=== PATIENT | male | born 1980 | race Two or more races ===

== ENCOUNTER 2022-12-06 13:41 | Emergency (ER) | payer OTHER ==
[~2022-12-06] VITALS: Ht 182.9 cm; Wt 109.9 kg
[2022-12-06 14:22] LABS: Basophils # (auto) 0 10 ^3/uL (0-0.2); Eosinophils # (auto) 0.1 10 ^3/uL (0-0.8); Lymphocytes # (auto) 2.3 10 ^3/uL (0.4-5.4); Mean Corpuscular Hgb Conc. 33.6 g/dL (32.0-36.0); Monocytes # (auto) 0.5 10 ^3/uL (0-1.3)
[2022-12-06 14:24] LABS: Basophils % (auto) 0.7 % (0.0-2.0); Hematocrit 22.3 % (41.0-53.0); Hemoglobin 7.5 g/dL (13.5-17.5); Lymphocytes % (auto) 34.2 % (10.0-50.0); Mean Corpuscular Hemoglobin 32.6 pg (28.0-32.0); Mean Corpuscular Volume 97.2 fL (80.0-100.0); Monocytes % (auto) 7.7 % (0.0-12.0); Neutrophils # (auto) 3.7 10 ^3/uL (1.6-8.6); Neutrophils % (auto) 55.4 % (37.0-80.0); Nucleated Red Blood Cells % 0.6 %; Red Blood Cells 2.29 10^6/uL (4.5-5.90); Red Cell Distribution Width 13.9 % (11.8-14.3); White Blood Cell 6.7 10^3/uL (4.4-10.8)
[2022-12-06 14:59] LABS: Albumin 3.2 g/dL (3.4-5.0)
[2022-12-06 15:03] LABS: BUN/Creatinine Ratio 12.3 (10.0-20.0); Bilirubin, Total 0.3 mg/dL (0.2-1.0); Total Protein 5.6 g/dL (6.4-8.2)
[2022-12-06] MEDS ORDERED: PANTOPRAZOLE 40 MG/10 ML VIAL INJ IV ONE ×2 (16:30→19:45)
[2022-12-06 17:09] LABS: % Iron Saturation 19.3 % (20-55)
[2022-12-06 18:12] LABS: Urine Bacteria NONE SEEN /hpf (None Seen); Urine Blood Negative /uL (Negative); Urine Mucus FEW (None Seen); Urine Specific Gravity 1.022 (1.001-1.035); Urine WBC <1 /hpf (0 - 3)
[2022-12-06] MEDS ORDERED: MORPHINE SULFATE INJ 2 MG/ml SYRG IV ONE (19:00)
[2022-12-06] MEDS ORDERED: IOHEXOL 300 MG/ML 100ML BOTTLE IJ ONE (19:05)
[2022-12-06] MEDS ORDERED: PANTOPRAZOLE 40mg/50ML NS AE 50 ML IV ONE (19:45)
[2022-12-06] MEDS ORDERED: SODIUM CHLORIDE 0.9% 2,000 ML IV ONE (20:00)
[2022-12-06 20:16] LABS: Magnesium 2.5 mg/dL (1.6-2.6)
[2022-12-06 20:35] VITALS: BP 114/85
[2022-12-06 21:00] VITALS: BP 105/71
[2022-12-06 22:17] LABS: INR 1.03 (0.9-1.15); Partial Thromboplastin Time 25.3 SEC (24.5-34.5)
[2022-12-06 23:35] VITALS: BP 117/63
[2022-12-07 01:28] VITALS: BP 130/84
[2022-12-07] MEDS ORDERED: ONDANSETRON HCL 4 MG/2 ML VIAL IV ONE (01:45)
[2022-12-07] MEDS ORDERED: HYDROcodone-ACET 10/325MG TAB PO ONE (01:45)
== END 2022-12-07 03:41 | disposition short-term general hospital (02) ==
LOC: ER 13:41
DX: D64.9 Anemia, unspecified (principal); E83.51 Hypocalcemia; K92.1 Melena; Z20.822 Contact with and (suspected) exposure to COVID-19
CPT/HCPCS: 36415; 36430; 71046; 74177; 80053; 81001; 82962; 83540; 83550; 83690; 83735; 84484; 85025; 85045; 85610; 85730; 86850; 86900; 86901; 86920; 87426; 93005; 96365; 96366; 96375; 96376; 99285; C9113; J2270; J2405; J7030; P9016; Q9967